=== PATIENT | male | born 1980 | race Caucasian/White ===

== ENCOUNTER 2021-11-18 08:12 | Emergency (ER) | payer OTHER, SELFPAY ==
--- NOTE | 2021-11-18 08:18 | ED.EAR ---
HPI - Ear Problem General Chief complaint: Ear Stated complaint: lt ear pain Time Seen by Provider: 11/18/21 08:25 Source: patient, RN notes reviewed and old records reviewed Mode of arrival: ambulatory Limitations: no limitations History of Present Illness HPI Narrative: 41-year-old male who presents to [facility] with complaints of left ear pain,left jaw pain and left side of tongue has feeling like he has burnt it with coffee. Patient reports that on Tuesday mid day he started having these shooting pains to the left side of his head which continued till thru Tuesday with pain to his left ear externally continuing and to his left jaw area.. Patient reports that he called [facility] through his insurance and received ear drops which he has been using. Patient states that his jaw continues to hurt and tongue feels like it is burnt on the left side left ear remains swollen and with some redness. Patient reports that yesterday he broke out with these red lesions on the side of his cheek. MD Complaint: ear pain Location: left ear Duration: constant Discharge from ear: Reports no Associated symptoms ear: other (external ear swollen) Treatment prior to arrival: eardrops Related Data Allergies Allergy/AdvReac Type Severity Reaction Status Date / Time Penicillins Allergy Hives Verified 11/18/21 08:20 Review of Systems Review of Systems: CONSTITUTIONAL: Denies fever, chills, or sweats. EYES: Denies visual changes, redness, or discharge. ENT: Denies rhinorrhea, congestion, sore throat, positive for left otalgia, jaw pain left side CARDIOVASCULAR: Denies chest pain, palpitations, or edema. RESPIRATORY: Denies cough or dyspnea. GASTROINTESTINAL: Denies abdominal pain, nausea, vomiting, or diarrhea. GENITOURINARY: Denies dysuria or hematuria. SKIN: Denies rash or itching. MUSCULOSKELETAL: Denies back pain, joint pain, or myalgia. NEUROLOGIC: Reports that he had shooting pains to the left side of his head on Tuesday and then onto Tuesday with with tenderness to his left ear ant to the left jaw region. headache, denies any numbness of face. PSYCHIATRIC: Denies anxiety or depression. All systems reviewed & are unremarkable except as noted in HPI and below PMFSH Past Medical History Medical History (Updated 11/18/21 @ 11:20 by Milena Cruz NP) Crohn's disease Social History Social History (Updated 11/18/21 @ 11:20 by Milena Cruz NP) Smoking status: Never smoker Alcohol intake: current Alcohol use details: social Substance use type: does not use Living arrangements: with family Gender identity (if verbalized by the patient): Male Comments At time of signature, agree with nursing past medical, surgical, social and family history. There is no relevant family history pertinent to the presenting complaint Exam Narrative: GENERAL: Well-appearing, well-nourished, and in no acute distress. HEAD: Normocephalic, atraumatic. EYES: PERRLA and EOMI. ENT: Nares clear, no rhinorrhea or epistaxis. Mucous membranes moist.TM's normal, no drainage from the left ear, no canal swelling or redness no tragal tenderness.throat pink with no lesions or swelling, tongue reported to feel like burned on coffee on left side of tongue and left jaw discomfort. NECK: Supple. no lymphadenopathy CHEST: Clear to auscultation. No respiratory distress.SAO2 100% on room air HEART: Regular rate and rhythm. No murmur heard. Normal peripheral pulses. ABDOMEN: Soft, nontender, nondistended, normal active bowel sounds. EXTREMITIES: Normal range of motion. No edema. SKIN: Warm, dry, three red lesions along left side of face with continued pain to jaw and tongue feeling like he burnt it with some edema to left side of face. NEURO: No focal deficits. Alert and oriented x3. Course Course Level of Care: Express Care Visit Vital Signs Vital signs: Vital Signs Temperature 37.3 C 11/18/21 08:26 Pulse Rate 58 L 11/18/21 08:26 Respiratory Rate 1
[2021-11-18 08:26] VITALS: BP 133/91; PULSE 58; RESP 16; TEMP 37.3; O2SAT 100
== END 2021-11-18 08:55 | disposition home or self-care (01) ==
PROVIDERS: Emergency Provider Registered Nurse
DX: B02.9 Zoster without complications (principal); K50.90 Crohn's disease, unspecified, without complications
CPT/HCPCS: 99213; G0463

== ENCOUNTER 2024-02-01 17:23 | Emergency (ER) | payer OTHER, SELFPAY ==
[2024-02-01 18:08] VITALS: BP 131/93; PULSE 65; RESP 16; TEMP 37.3; O2SAT 100
--- NOTE | 2024-02-01 18:59 | ED.URI ---
HPI - URI/Sore Throat General Chief Complaint: Upper Respiratory Infection Stated Complaint: Cold Symptoms Time Seen by Provider: 02/01/24 18:48 Source: patient and RN notes reviewed Mode of arrival: ambulatory Limitations: no limitations History of Present Illness HPI Narrative: Patient presents today complaining of sinus pressure, nasal congestion, postnasal drip, cough, fatigue, body aches, chest tightness. Symptoms have been present for over a week, close to a week and a half. He also reports some mild shortness of breath. Denies fever. Currently rates his discomfort 3/10 and has been taking Mucinex, Sudafed, and Tylenol with mild relief. No history of asthma or COPD. He is a nonsmoker. Related Data Allergies Allergy/AdvReac Type Severity Reaction Status Date / Time Penicillins Allergy Hives Verified 02/01/24 18:16 Review of Systems Review of Systems: CONSTITUTIONAL: Denies fever, chills, or sweats.+ body aches, fatigue EYES: Denies visual changes, redness, or discharge. ENT: Denies rhinorrhea, sore throat, or otalgia.+ congestion, postnasal drip, sinus pressure CARDIOVASCULAR: Denies chest pain, palpitations, or edema. RESPIRATORY: + cough, shortness of breath GASTROINTESTINAL: Denies abdominal pain, nausea, vomiting, or diarrhea. GENITOURINARY: Denies dysuria or hematuria. SKIN: Denies rash, itching, or wounds. MUSCULOSKELETAL: Denies back pain, joint pain, or myalgia. NEUROLOGIC: Denies headache, numbness, tingling, or weakness. PSYCH: Denies depression or anxiety. [facility] Past Medical History Medical History Crohn's disease Social History Social History Smoking status: Never smoker Alcohol intake: current Alcohol use details: social Substance use type: does not use Living arrangements: with family Gender identity (if verbalized by the patient): Male Comments At time of signature, I have reviewed and agree with nursing past medical, surgical, social and family history unless otherwise noted. Please see nursing chart for further information. There is no relevant family history pertinent to the presenting complaint Exam Narrative: GENERAL: Mildly ill-appearing, well-nourished, and in no acute distress. HEAD: Normocephalic, atraumatic. EYES: EOMI. No redness or drainage. Conjunctivae normal. ENT: Mucous membranes pink and moist. Nares congestive. No rhinorrhea. TMs normal bilaterally. Throat normal. Uvula midline. NECK: Normal AROM. Supple. No lymphadenopathy. CHEST: No respiratory distress. Clear to auscultation. HEART: Regular rate and rhythm. No murmur appreciated. EXTREMITIES: Normal range of motion. No edema. SKIN: Warm, dry, no rash. Capillary refill normal. Normal skin turgor. NEURO: No focal deficits. Alert and oriented x3. Gait steady. PSYCH: Normal affect. No signs of depression or anxiety. Course Course Level of Care: Express Care Visit Vital Signs Vital signs: Vital Signs Temperature 99.1 F 02/01/24 18:08 Pulse Rate 65 02/01/24 18:08 Respiratory Rate 16 02/01/24 18:08 Blood Pressure 131/93 H 02/01/24 18:08 Pulse Oximetry 100 02/01/24 18:08 Temperature 99.1 F 02/01/24 18:08 Pulse Rate 65 02/01/24 18:08 Respiratory Rate 16 02/01/24 18:08 Blood Pressure 131/93 H 02/01/24 18:08 Pulse Oximetry 100 02/01/24 18:08 Reviewed MDM - URI/Sore Throat MDM Narrative Medical decision making narrative: Patient will be started on a course of doxycycline for presumed bacterial sinusitis as well as some Tessalon Perles for cough and albuterol inhaler for chest tightness. Anticipatory guidance given. ED precautions given. Differential Diagnosis Differential diagnosis: Likely upper respiratory infection, sinusitis, viral infection, bronchitis and other (Pneumonia) Critical Care Time Critical Care Time Critical Care Time: No Discharge Plan Discharge Clinical Impression: Sinusitis Qualifiers: Sinusitis location: unspecified location Chronicity: acute Recurrence: non-recurrent Qualified Code(s): J01.90 - Acute sinusitis, unspecified Patient Disposition: Home, Self-Care Condition: Stable Instructions: Antibiotic Form, Sinusitis (ED) Additional Instructions: Please take the doxycycline and Tessalon Perles as directed. Use albuterol inhaler for coughing episodes or chest tightness. Please follow-up with your PCP next week if symptoms are not improved. As discussed, if your shortness of breath worsens or you develop a new fever greater than 100.3, please go to the ER immediately for further evaluation and treatment. Your blood pressure was elevated above 120/80 today at Urgent Care. This puts you above the threshold for follow up. Please schedule a followup visit with your personal physician as soon as possible, for further evaluation and treatment. Even blood pressure exceeding 120/80 may indicate pre-hypertension. Patient Language: [place] Prescriptions: New benzonatate 200 mg capsule 200 mg PO TID PRN (Reason: cough) Qty: 20 0RF albuterol sulfate 90 mcg/actuation HFA aerosol inhaler 2 inh inhalation Q4-6H PRN (Reason: shortness of breath or wheezing) Qty: 8.5 0RF doxycycline hyclate 100 mg tablet 100 mg PO BID 7 Days Qty: 14 0RF (DME) BreatheRite MDI Spacer Spacer See Rx Instructions .ROUTE .MEDSUPPLY Qty: 1 0RF Rx Instructions: As directed No Action valacyclovir [Valtrex] 1 gram tablet 1,000 mg PO Q8H Qty: 21 0RF prednisone 10 mg tablet 10 mg PO DAILY Qty: 42 0RF Rx Instructions: 6 tabs daily X2, 5 tabs daily X2, 4 tabs days 2, 3 tabs days 2, 2 tabs day2, 1 tab daily X 2 days Follow-up/Referrals: PHYSICIAN,OPTICAL SCIENTIST [Primary Care Provider] - Time of Disposition: 19:03
== END 2024-02-01 19:15 | disposition home or self-care (01) ==
PROVIDERS: Emergency Provider Nurse Practitioner
DX: J01.90 Acute sinusitis, unspecified (principal); K50.90 Crohn's disease, unspecified, without complications
CPT/HCPCS: 99213; G0463